=== PATIENT | male | born 1975 | race Caucasian/White ===

== ENCOUNTER 2021-10-22 21:30 | Inpatient (IN) | payer OTHER ==
[~2021-10-22] VITALS: Ht 193 cm; Wt 113.4 kg
--- NOTE | 2021-10-22 22:00 | NUR ---
BIBS C/O RLQ ABD PAIN X 2 WEEKS. PT AWAKE AND ALERT X4 AMBULATORY WITH STEADY GAIT. CHANGED INTPO GOWN AND PLACED ON MONITOR. BREATHING EVEN AND UNLABORED AND ALL V/S WNL.
--- NOTE | 2021-10-22 22:01 | NUR ---
urine collected and sent to lab
[2021-10-22 22:21] LABS: BASOPHILS # (AUTO) 0.1 K/uL (0.0-0.2); BASOPHILS % (AUTO) 0.5 % (0.0-2.0); EOSINOPHILS % (AUTO) 0.8 % (0.0-6.0); HEMATOCRIT 40 % (39-51); HEMOGLOBIN 14.2 g/dL (13.5-17.5); LYMPHOCYTES # (AUTO) 1.7 K/uL (0.8-4.8); LYMPHOCYTES % (AUTO) 15.2 % (20.0-44.0); MEAN CORPUSCULAR HGB CONC 35 g/dl (31.0-36.0); MEAN CORPUSCULAR VOLUME 82 fL (80-96); MONOCYTES % (AUTO) 8.9 % (2.0-12.0); NEUTROPHILS # (AUTO) 8.3 K/uL (1.8-8.9); NEUTROPHILS % (AUTO) 74.6 % (43.0-81.0); PLATELET COUNT (AUTO) 192 K/uL (150-450); RED BLOOD CELL COUNT(AUTO) 4.87 MIL/uL (4.5-6.0); WHITE BLOOD COUNT (AUTO) 11.2 K/uL (4.3-11.0)
[2021-10-22] MEDS ORDERED: KETOROLAC TROMETHAMINE INJ 30 MG/ML VIAL IV ONE (22:30)
[2021-10-22 22:33] LABS: BILIRUBIN,URINE NEGATIVE (NEGATIVE); COLOR,URINE YELLOW (YELLOW); LEUKOCYTE ESTERASE ,URINE NEGATIVE (NEGATIVE); NITRITE, URINE NEGATIVE (NEGATIVE); PROTEIN,URINE TRACE mg/dl (NEGATIVE); UGLUCOSE NEGATIVE (NEGATIVE)
--- NOTE | 2021-10-22 22:40 | NUR ---
PT TAKEN FOR CT SCAN
[2021-10-22] MEDS ORDERED: KETOROLAC TROMETHAMINE INJ 30 MG/ML VIAL ONE (22:46)
[2021-10-22 22:49] LABS: BACTERIA,URINE Rare /HPF (None Seen); SQUAMOUS EPITHELIAL CELL,UR None Seen /HPF (None Seen); WBC,URINE 0-2 /HPF (0-3)
[2021-10-22 22:49] LABS: CALCIUM, SERUM 8.2 mg/dL (8.5-10.1); CREATININE 1.1 mg/dL (0.6-1.3); POTASSIUM 3.4 mmol/L (3.5-5.1)
[2021-10-22] MEDS ORDERED: KETOROLAC TROMETHAMINE INJ 60 MG/2 ML VIAL IM ONE (23:00)
[2021-10-22 23:04] LABS: ALBUMIN 3.3 g/dL (3.4-5.0); BILIRUBIN,DIRECT 0.1 mg/dL (0.0-0.2); BILIRUBIN,TOTAL 0.4 mg/dL (0.2-1.0); TOTAL PROTEIN, SERUM 6.9 g/dL (6.4-8.2)
[2021-10-22] MEDS ORDERED: METRONIDAZOLE 500MG/ NS 100ML 100 ML IV ONE (23:30)
[2021-10-22] MEDS ORDERED: IV NS 0.9% 1,000 ML BAG IV ONE (23:30)
[2021-10-22] MEDS ORDERED: CEFTRIAXONE 1GM BAG (ER ONLY) 50 ML IV ONE ×2 (23:30→23:39)
--- NOTE | 2021-10-22 23:36 | NUR ---
DR HYMAN ON THE PHONE WITH DR COX, GEN SURG
--- NOTE | 2021-10-22 23:37 | NUR ---
COVID ANTIGEN SWAB COLLECTED AND SENT TO LAB
[2021-10-23] MEDS ORDERED: MORPHINE SULFATE INJ 2 MG/ML DISP.SYRIN IV ONE
--- NOTE | 2021-10-23 | NUR ---
MRSA SWAB COLLECTED AND SENT TO LAB. PATIENT'S BELONGINGS LIST DONE.
--- NOTE | 2021-10-23 00:02 | NUR ---
ROOM 304-2
[2021-10-23] MEDS ORDERED: METRONIDAZOLE 500MG/ NS 100ML 100 ML IV ONE ×2 (00:11→06:36)
[2021-10-23] MEDS ORDERED: MORPHINE SULFATE INJ 4 MG/ML DISP.SYRIN ONE (00:11)
[2021-10-23] MEDS ORDERED: MORPHINE SULFATE INJ 2 MG/ML DISP.SYRIN IV PRN (00:30)
[2021-10-23] MEDS ORDERED: ONDANSETRON HCL/PF 4 MG/2 ML VIAL IVP PRN (00:30)
[2021-10-23] MEDS ORDERED: ACETAMINOPHEN 325 MG TABLET PO PRN (00:30)
--- NOTE | 2021-10-23 00:30 | NUR ---
rewport given to lola
--- NOTE | 2021-10-23 00:50 | NUR ---
MS ELEVATING GRADER OPERATOR NOTES PATIENT ARRIVED TO UNIT 0050 ACCOMPANIED BY ER STAFF; PATIENT AMBULATORY; PATIENT ABLE TO MAKE NEEDS KNOWN; A/OX4, BREATHING EVEN AND UNLABORED; NO SOB NOTED; TOLERATING ROOM AIR WELL; PATIENT REPORTING MILD DISCOMFORT RLQ ABDOMINAL PAIN BUT VERBALIZED HE DOES NOT WANT ANY PAIN MEDS AT THIS TIME BECAUSE HE JUST RECEIVED PAIN MEDS IN ER; PATIENT MEDICAL HISTORY OBTAINED; PATIENT BELONGINGS CHECKED WITH GAME BREEDING FARM MANAGER, VSS; PATIENT NPO D/T POSSIBLE PROCEDURE; NO MD ORDERS FOR PROCEDURE AT THIS TIME; PATIENT HAS R FA #20 IV SITE, RECEIVING IVABX, TOLERATING IVF WELL; PATIENT ORIENTED TO STAFF AND UNIT, SAFETY PRECAUTIONS IMPLEMENTED; BED LOCKED IN LOW POSITION; SIDE RAILSX2, CALL LIGHT WITHIN REACH; WILL CONT TO MONITOR AND CONT PLAN OF CARE
--- NOTE | 2021-10-23 00:54 | NUR ---
TRANSFERRED TO THIRD FLOOR IN STABLE CONDITION
[2021-10-23] MEDS ORDERED: CEFEPIME 2 GM in IV D5W 100 ML IV ONE (01:30)
[2021-10-23] MEDS: IV NS 0.9% 1,000 ML IV SCH (01:32)
[2021-10-23] MEDS ORDERED: CEFEPIME 1 GM VIAL ONE (01:41)
--- NOTE | 2021-10-23 04:45 | NUR ---
RN NOTES RECEIVED CALL FROM NURSING RESEARCH ASSOCIATE POLICY, HERO HOOPER; PER NURSING SUP, PATIENT GOING FOR LAPAROSCOPIC APPENDECTOMY, POSSIBLE OPEN KURT; CHECK LIST DONE, CONSENTS SIGNED, WILL TRANSPORT PATIENT TO OR
[2021-10-23] MEDS ORDERED: FENTANYL PF 100MCG/2ML AMPUL ONE ×3 (05:04→07:31)
[2021-10-23] MEDS ORDERED: ROCURONIUM BROMIDE 50 MG/5 ML ONE (05:04)
[2021-10-23] MEDS ORDERED: ANESTHESIA TRAY IN PYXIS 1 EA TRAY MC ONE (05:20)
[2021-10-23] MEDS ORDERED: BUPIVACAINE MPF 0.5% W/EPI INJ 30 ML VIAL ONE (05:20)
--- NOTE | 2021-10-23 05:28 | NUR ---
MS RN NOTES PATIENT TRANSFERRED TO OR; WILL INFORM DAY SHIFT REGARDING PATIENT; CHARGE NURSE AWARE, NURSING ROULETTE DEALER AWARE
--- NOTE | 2021-10-23 06:56 | NUR ---
MS RN NOTES PATIENT CURRENTLY UNDERGOING PROCEDURE AT THIS TIME; NOT ON UNIT, WILL INFORM DAY SHIFT
--- NOTE | 2021-10-23 07:37 | NUR ---
MS RN OPENING NOTE PT IS NOT IN THE UNIT. PT CURRENTLY IN SURGERY AT THIS TIME.
[2021-10-23] MEDS ORDERED: LABETALOL HCL IV 100MG VIAL ONE (07:57)
--- NOTE | 2021-10-23 08:20 | NUR ---
RN NOTE PT BACK FROM SURGERY, S/P LAPAROSCOPIC APPENDECTOMY. DRESSING IN INTACT WITH NO ACTIVE BLEEDING NOTED. ELENA IN PLACE AND PATENT ON THE LEFT SIDE OF THE ABDOMEN. DENIES PAIN OR DISCOMFORT AT THIS TIME. PT CURRENTLY ON CLEAR LIQUID DIET. WILL CONTINUE TO MONITOR PT. Addendum: 10/23/21 at 2006 by MARCUS VALDOVINOS RN ADDENDUM PT IS ON S/P LAPAROSCOPIC APPENDECTOMY CONVERTED TO OPEN PLUS COLECTOMY PARTIAL.
[2021-10-23] MEDS ORDERED: MORPHINE SULFATE INJ 4 MG/ML DISP.SYRIN IV PRN (08:30)
[2021-10-23] MEDS ORDERED: DOCUSATE SODIUM 100 MG CAPSULE PO PRN (08:30)
[2021-10-23] MEDS ORDERED: CEFEPIME 2 GM in IV D5W 100 ML IV SCH (09:00)
[2021-10-23] MEDS ORDERED: ESCI10TA PO (09:01)
[2021-10-23] MEDS: METRONIDAZOLE 500MG/ NS 100ML 500 MG in PREMIX 1 EA IV SCH ×2 (09:35→18:36)
[2021-10-23] MEDS: POTASSIUM CL. PREMIX PERIPHER. 50 ML IV SCH ×2 (10:42→12:00)
[2021-10-23] MEDS ORDERED: METRONIDAZOLE 500MG/ NS 100ML 500 MG in PREMIX 1 EA IV SCH (12:00)
[2021-10-23] MEDS: ANCEF 1 GM/50 ML D5W IV SCH ×4 (13:38→21:36)
[2021-10-23] MEDS: MORPHINE SULFATE INJ 2 MG/ML DISP.SYRIN IV PRN (13:38)
[2021-10-23 16:00] VITALS: BP 124/90
--- NOTE | 2021-10-23 16:42 | NUR ---
RT Instructed patient on how to use incentive spirometer.
--- NOTE | 2021-10-23 19:15 | NUR ---
MS RN OPENING NOTES: RECEIVED PATIENT IN BED, ASLEEP, EASILY AROUSABLE. NO S/S OF DISTRESS NOTED. NO COMPLAIN OF PAIN. CALL LIGHT WITHIN REACH. BED IN LOWEST AND LOCKED POSITION. PER REPORT, PT SEEN THE PATIENT TODAY. REMINDED TO USE THE IS AND PATIENT DID. A/O X4. URINAL AT THE BEDSIDE. WITH ELENA DRAIN INTACT WITH SEROSANGUINOUS OUTPUT.
--- NOTE | 2021-10-23 19:33 | NUR ---
MS RN CLOSING NOTE PT IN BED ASLEEP, EASILY AROUSE. A/O X4, ABLE TO MAKE NEEDS KNOWN. ON RA, TOLERATING WELL. BREATHING EVEN AND UNLABORED. NOT IN ANY SIGN OF RESPIRATORY DISTRESS. IV ACCESS ON RFA G #20 INTACT AND PATENT WITH NS INFUSING AT 75ML/HR. ON S/P LAPAROSCOPIC APPENDECTOMY CONVERTED TO OPEN PLUS COLECTOMY PARTIAL, DRESSING IN PLACE WITH NO ACTIVE BLEEDING NOTED. ELENA DRAIN IN PLACE WITH 200ML OF OUTPUT DURING SHIFT. ALL NEEDS ATTENDED. SAFETY MEASURES IN PLACE: BED IN LOWEST AND LOCKED POSITION, SIDE RAILS UP X2, CALL LIGHT WITHIN REACH. ENDORSED TO RASCHEL KNITTING MACHINE OPERATOR NURSE FOR SILVIO.
[2021-10-23 20:00] VITALS: BP 134/55
[2021-10-23] MEDS ORDERED: ENOXAPARIN SODIUM 40 MG/0.4 ML DISP.SYRIN SQ SCH (22:00)
[2021-10-24] MEDS: METRONIDAZOLE 500MG/ NS 100ML 500 MG in PREMIX 1 EA IV SCH ×3 (01:29→18:44)
[2021-10-24] MEDS: ANCEF 1 GM/50 ML D5W IV SCH ×6 (05:15→21:00)
[2021-10-24] MEDS: MORPHINE SULFATE INJ 2 MG/ML DISP.SYRIN IV PRN ×2 (05:21→17:57)
[2021-10-24 05:55] LABS: HEMATOCRIT 38 % (39-51); HEMOGLOBIN 13.4 g/dL (13.5-17.5); LYMPHOCYTES % (AUTO) 6.7 % (20.0-44.0); MEAN CORPUSCULAR HGB CONC 35 g/dl (31.0-36.0); MEAN CORPUSCULAR VOLUME 83 fL (80-96); MONOCYTES # (AUTO) 1.4 K/uL (0.1-1.30); MONOCYTES % (AUTO) 8.8 % (2.0-12.0); NEUTROPHILS % (AUTO) 84.5 % (43.0-81.0); PLATELET COUNT (AUTO) 210 K/uL (150-450); RED BLOOD CELL COUNT(AUTO) 4.64 MIL/uL (4.5-6.0); WHITE BLOOD COUNT (AUTO) 15.4 K/uL (4.3-11.0)
[2021-10-24 06:08] LABS: BILIRUBIN,TOTAL 0.6 mg/dL (0.2-1.0); CREATININE 1.1 mg/dL (0.6-1.3); MAGNESIUM 1.9 mg/dL (1.8-2.4); PHOSPHORUS 2.7 mg/dL (2.5-4.9); POTASSIUM 3.5 mmol/L (3.5-5.1); TOTAL PROTEIN, SERUM 6.8 g/dL (6.4-8.2)
[2021-10-24 06:31] LABS: CALCIUM, SERUM 8.5 mg/dL (8.5-10.1)
--- NOTE | 2021-10-24 07:26 | NUR ---
MS RN OPENING NOTE RECEIVED PT IN ASLEEP IN BED, EASILY AROUSE. A/O X4, ABLE TO MAKE NEEDS KNOWN. ON RA, TOLERATING WELL. BREATHING EVEN AND UNLABORED. NOT IN ANY SIGN OF RESPIRATORY DISTRESS. IV ACCESS ON RFA G #20 INTACT AND PATENT WITH NS INFUSING AT 75ML/HR. ON S/P LAPAROSCOPIC APPENDECTOMY CONVERTED TO OPEN PLUS COLECTOMY PARTIAL, DRESSING IN PLACE WITH NO ACTIVE BLEEDING NOTED. ELENA DRAIN IN PLACE. SAFETY MEASURES IN PLACE: BED IN LOWEST AND LOCKED POSITION, SIDE RAILS UP X2, CALL LIGHT WITHIN REACH. WILL CONTINUE TO MONITOR PT.
[2021-10-24 08:00] VITALS: BP 147/68
[2021-10-24] MEDS: ENOXAPARIN SODIUM 40 MG/0.4 ML DISP.SYRIN SQ SCH (08:26)
[2021-10-24] MEDS: IV NS 0.9% 1,000 ML IV SCH (11:10)
[2021-10-24 16:33] VITALS: BP 136/87
--- NOTE | 2021-10-24 19:15 | NUR ---
MS RN NOTES RECEIVED ON BED A/O X4,VISITOR AT BEDSIDE,BREATHING REGULAR,NOT IN ANY FORM OF DISTRESS,S/P LAP APPY,CONVERTED TO OPEN AND PARTIAL COLECTOMY,SURGICAL ABDOMINAL INCISION X3 WITH DRESSING INTACT AND DRY,JOHNATHON VILLATORO IN PLACE DRAINING SANGUINOUS OUTPUT.,PAIN TOLERABLE AT THE MOMENT.ENCOURAGE TO DO IS WHILE AWAKE.CALL LIGHT IN REACH,NEEDS ANTICIPATED.
--- NOTE | 2021-10-24 19:30 | NUR ---
MS RN NOTES AMBULATE WITH WALKER,ACCOMPANIED BY .
--- NOTE | 2021-10-24 19:30 | NUR ---
MS RN CLOSING NOTE PT IN BED ASLEEP, EASILY AROUSE. A/O X4, ABLE TO MAKE NEEDS KNOWN. ON RA, TOLERATING WELL. BREATHING EVEN AND UNLABORED. NOT IN ANY SIGN OF RESPIRATORY DISTRESS. IV ACCESS ON RFA G #20 INTACT AND PATENT WITH NS INFUSING AT 75ML/HR. ON S/P LAPAROSCOPIC APPENDECTOMY CONVERTED TO OPEN PLUS COLECTOMY PARTIAL, DRESSING IN PLACE WITH NO ACTIVE BLEEDING NOTED. ELENA DRAIN IN PLACE WITH 110 ML OF OUTPUT DURING SHIFT. ALL NEEDS ATTENDED. SAFETY MEASURES IN PLACE: BED IN LOWEST AND LOCKED POSITION, SIDE RAILS UP X2, CALL LIGHT WITHIN REACH. ENDORSED TO CHAIR INSPECTOR NURSE FOR SILVIO.
[2021-10-24 20:00] VITALS: BP 137/97
[2021-10-25] MEDS: METRONIDAZOLE 500MG/ NS 100ML 500 MG in PREMIX 1 EA IV SCH ×3 (01:55→17:58)
[2021-10-25] MEDS: ANCEF 1 GM/50 ML D5W IV SCH ×6 (04:57→21:37)
[2021-10-25 06:06] LABS: BASOPHILS % (AUTO) 0.2 % (0.0-2.0); EOSINOPHILS % (AUTO) 0.2 % (0.0-6.0); HEMATOCRIT 42 % (39-51); HEMOGLOBIN 14.6 g/dL (13.5-17.5); LYMPHOCYTES # (AUTO) 1.6 K/uL (0.8-4.8); LYMPHOCYTES % (AUTO) 11.1 % (20.0-44.0); MEAN CORPUSCULAR HGB CONC 35 g/dl (31.0-36.0); MEAN CORPUSCULAR VOLUME 83 fL (80-96); MONOCYTES # (AUTO) 1.3 K/uL (0.1-1.30); NEUTROPHILS # (AUTO) 11.3 K/uL (1.8-8.9); NEUTROPHILS % (AUTO) 79.5 % (43.0-81.0); PLATELET COUNT (AUTO) 251 K/uL (150-450); RED BLOOD CELL COUNT(AUTO) 5.06 MIL/uL (4.5-6.0); WHITE BLOOD COUNT (AUTO) 14.2 K/uL (4.3-11.0)
--- NOTE | 2021-10-25 06:07 | NUR ---
MS RN NOTES SLEPT WELL AT NIGHT.OFFERED PAIN MEDICINE BUT REFUSE.PAIN TOLERABLE THRU OUT SHIFT.VOIDED PER URINAL,ELENA DRAINS SANGUINOUS OUTPUT.INCENTIVE SPIROMETRY USED WHILE AWAKE.IN NO ACUTE DISTRESS.
[2021-10-25 06:20] LABS: CALCIUM, SERUM 8.6 mg/dL (8.5-10.1); CREATININE 1.1 mg/dL (0.6-1.3); POTASSIUM 3.5 mmol/L (3.5-5.1)
[2021-10-25 08:00] VITALS: BP 145/93
[2021-10-25] MEDS: ENOXAPARIN SODIUM 40 MG/0.4 ML DISP.SYRIN SQ SCH (08:44)
[2021-10-25] MEDS: MORPHINE SULFATE INJ 2 MG/ML DISP.SYRIN IV PRN (14:45)
--- NOTE | 2021-10-25 18:36 | NUR ---
MS RN CLOSING NOTE PT IN BED AWAKE WATCHING TV. A/O X4, ABLE TO MAKE NEEDS KNOWN. ON RA, TOLERATING WELL. BREATHING EVEN AND UNLABORED. NOT IN ANY SIGN OF RESPIRATORY DISTRESS. IV ACCESS ON RFA G #20 SALINE LOCK, INTACT AND PATENT. ON S/P LAPAROSCOPIC APPENDECTOMY CONVERTED TO OPEN PLUS COLECTOMY PARTIAL, SURGICAL INCISION CLEANED AND DRESSING CHANGED. NO ACTIVE BLEEDING NOTED. ELENA DRAIN IN PLACE WITH 180 ML OF OUTPUT DURING SHIFT. ALL NEEDS ATTENDED. SAFETY MEASURES IN PLACE: BED IN LOWEST AND LOCKED POSITION, SIDE RAILS UP X2, CALL LIGHT WITHIN REACH. WILL ENDORSE TO PODIATRIC FOOT AND ANKLE SPECIALIST NURSE FOR SILVIO.
--- NOTE | 2021-10-25 20:01 | NUR ---
MS/TELE/RN PATIENT WAS IN BED AWAKE, ALERT, ORIENTED, COMFORTABLE, NO C/O PAIN, NO DISTRESS NOTED, CALL LIGHT IN REACH, WILL MONITOR.
[2021-10-25 20:40] VITALS: BP 145/95
[2021-10-26] MEDS: METRONIDAZOLE 500MG/ NS 100ML 500 MG in PREMIX 1 EA IV SCH ×3 (02:13→18:19)
[2021-10-26] MEDS: ANCEF 1 GM/50 ML D5W IV SCH ×6 (04:40→20:53)
[2021-10-26 05:47] LABS: BASOPHILS # (AUTO) 0.1 K/uL (0.0-0.2); BASOPHILS % (AUTO) 0.7 % (0.0-2.0); EOSINOPHILS % (AUTO) 1.3 % (0.0-6.0); HEMATOCRIT 41 % (39-51); HEMOGLOBIN 14.1 g/dL (13.5-17.5); LYMPHOCYTES # (AUTO) 1.7 K/uL (0.8-4.8); LYMPHOCYTES % (AUTO) 15.6 % (20.0-44.0); MEAN CORPUSCULAR HGB CONC 35 g/dl (31.0-36.0); MEAN CORPUSCULAR VOLUME 83 fL (80-96); MONOCYTES % (AUTO) 9.2 % (2.0-12.0); NEUTROPHILS # (AUTO) 8.2 K/uL (1.8-8.9); NEUTROPHILS % (AUTO) 73.2 % (43.0-81.0); PLATELET COUNT (AUTO) 263 K/uL (150-450); RED BLOOD CELL COUNT(AUTO) 4.95 MIL/uL (4.5-6.0); WHITE BLOOD COUNT (AUTO) 11.2 K/uL (4.3-11.0)
[2021-10-26 05:55] LABS: CALCIUM, SERUM 8.4 mg/dL (8.5-10.1); POTASSIUM 3.4 mmol/L (3.5-5.1)
--- NOTE | 2021-10-26 06:11 | NUR ---
MS/TELE/RN PATIENT APPEARS SLEEPING, APPEARS COMFORTABLE, NO SIGNS OF DISTRESS NOTED, CALL LIGHT IN REACH, ALL NEEDS ATTENDED AT THIS TIME, WILL CONTINUE TO MONITOR.
--- NOTE | 2021-10-26 07:40 | NUR ---
MS RN OPENING NOTES RECEIVED PATIENT SLEEPING IN HIS BED COMFORTABLY. A/O X 4. NO SIGNS OF DISTRESS, SOB AND DISCOMFORTED NOTED. R HAND 20G, PATENT & INTACT. SAFETY MEASURES INITIATED: CALL LIGHT IN REACH, BED ON LOWER POSITION. ALL NEEDS ATTENDED AT THIS TIME. WILL CONTINUE TO MONITOR FOR SILVIO.
[2021-10-26 08:00] VITALS: BP 137/100
[2021-10-26] MEDS ORDERED: POTASSIUM CHLORIDE 20 MEQ POWDER PACKET PO ONE (09:00)
[2021-10-26] MEDS: ENOXAPARIN SODIUM 40 MG/0.4 ML DISP.SYRIN SQ SCH (09:33)
[2021-10-26] MEDS: ESCITALOPRAM OXALATE (10 MG) 10 MG TABLET PO SCH (11:21)
[2021-10-26 16:00] VITALS: BP 124/86
--- NOTE | 2021-10-26 19:10 | NUR ---
MS/RN OPENING NOTE RECEIVED PATIENT RESTING IN BED. AWAKE, ALERT AND ORIENTED X 4. ABLE TO MAKE NEEDS KNOWN. DENIES PAIN AT THIS TIME. CONTINUES ON ROOM AIR WITH NO S/SX OF RESPIRATORY DISTRESS NOTED. IV ACCESS TO RIGHT FOREARM #20G INTACT, PATENT AND SALINE LOCKED. CONTINUES ON IV ABX. CONTINUES ON FULL LIQUID DIET WITH NO C/O NAUSEA/VOMITING NOTED. DRESSING TO SURGICAL SITE ON ABDOMEN C/D/I. ELENA DRAIN IN PLACE WITH MINIMAL DRAINAGE NOTED. CALL LIGHT WITHIN REACH. ASPIRATION, FALL AND SAFETY PRECAUTIONS MAINTAINED. ALL NEEDS ATTENDED TO AT THIS TIME.
--- NOTE | 2021-10-26 19:30 | NUR ---
MS RN CLOSING NOTES PATIENT IS RESTING COMFORTABLY IN BED. A/O X 4 AND ABLE TO COMMUNICATE HIS NEEDS. ROOM AIR, NO SIGNS OF DISTRESS, SOB AND DISCOMFORTED NOTED. R HAND 20G, PATENT & INTACT. ELENA BULB IN PLACE: TOTAL OUTPUT DRAINAGE OF 125 ML. SAFETY MEASURES INITIATED: CALL LIGHT IN REACH, BED ON LOWER POSITION. ALL NEEDS ATTENDED AT THIS TIME. WILL ENDORSE TO INCOMING SHIFT FOR SILVIO.
[2021-10-26 20:00] VITALS: BP 134/83
[2021-10-27] MEDS: METRONIDAZOLE 500MG/ NS 100ML 500 MG in PREMIX 1 EA IV SCH (01:01)
--- NOTE | 2021-10-27 03:17 | NUR ---
MS/RN NOTE PATIENT ENDORSES FEELING "HUNGRY". DENIES NAUSEA OR VOMITING ON FULL LIQUID DIET. PATIENT ENDORSES HAVING 2 BM'S YESTERDAY. GAVE SALTINE CRACKERS WITH PATIENT TOLERATING WELL. PER DR. COX MAY ADVANCE DIET AFTER BM. DIET ORDER CHANGED FROM FULL LIQUIDS TO REGULAR DIET.
[2021-10-27] MEDS: ANCEF 1 GM/50 ML D5W IV SCH ×6 (05:16→20:03)
--- NOTE | 2021-10-27 06:10 | NUR ---
MS/RN CLOSING NOTE PATIENT CURRENTLY RESTING IN BED. AWAKE, ALERT AND ORIENTED X 4. ABLE TO MAKE NEEDS KNOWN. DENIES PAIN AT THIS TIME. CONTINUES ON ROOM AIR WITH NO S/SX OF RESPIRATORY DISTRESS NOTED. IV ACCESS TO RIGHT FOREARM #20G INTACT, PATENT AND SALINE LOCKED. CONTINUES ON IV ABX. DENIES ANY NAUSEA/VOMITING THIS SHIFT. DRESSING TO SURGICAL SITE ON ABDOMEN C/D/I. ELENA DRAIN IN PLACE WITH MINIMAL DRAINAGE NOTED. TOTAL OUTPUT FROM ELENA DRAIN IS 50CC SEROSANGUINEOUS DRAINAGE. CALL LIGHT WITHIN REACH. ASPIRATION, FALL AND SAFETY PRECAUTIONS MAINTAINED. ALL NEEDS ATTENDED TO AT THIS TIME. WILL ENDORSE PLAN OF CARE TO ONCOMING SHIFT.
[2021-10-27 06:11] LABS: BASOPHILS % (AUTO) 0.4 % (0.0-2.0); EOSINOPHILS % (AUTO) 1.9 % (0.0-6.0); HEMATOCRIT 44 % (39-51); HEMOGLOBIN 15.1 g/dL (13.5-17.5); LYMPHOCYTES # (AUTO) 2.1 K/uL (0.8-4.8); LYMPHOCYTES % (AUTO) 17.8 % (20.0-44.0); MEAN CORPUSCULAR HGB CONC 34 g/dl (31.0-36.0); MEAN CORPUSCULAR VOLUME 84 fL (80-96); MONOCYTES # (AUTO) 0.9 K/uL (0.1-1.30); MONOCYTES % (AUTO) 7.4 % (2.0-12.0); NEUTROPHILS # (AUTO) 8.4 K/uL (1.8-8.9); NEUTROPHILS % (AUTO) 72.5 % (43.0-81.0); PLATELET COUNT (AUTO) 339 K/uL (150-450); RED BLOOD CELL COUNT(AUTO) 5.26 MIL/uL (4.5-6.0); WHITE BLOOD COUNT (AUTO) 11.6 K/uL (4.3-11.0)
[2021-10-27 06:17] LABS: CALCIUM, SERUM 8.7 mg/dL (8.5-10.1); POTASSIUM 3.3 mmol/L (3.5-5.1)
--- NOTE | 2021-10-27 07:00 | NUR ---
MS RN OPENING NOTES PATIENT LAYING IN BED, A/O X 4, ABLE TO MAKE NEEDS KNOWN. TOLERATING WELL ON ROOM AIR WITH NO S/S RESPIRATORY DISTRESS OR SOB. R FOREARM # 20 G SL CLEAN, INTACT, AND FLUSHING WELL. ABDOMINAL SURGICAL SITE DRESSING C/D/I. ELENA DRAIN IN PLACE. SAFETY MEASURES IN PLACE: BED IN LOWEST LOCKED POSITION, SIDE RAILS UP X 2, CALL LIGHT WITHIN REACH. WILL CONTINUE TO MONITOR.
[2021-10-27 08:00] VITALS: BP 130/71
[2021-10-27] MEDS ORDERED: POTASSIUM CHLORIDE 20 MEQ TAB.PRT.SR PO ONE (08:30)
[2021-10-27] MEDS: METRONIDAZOLE 500 MG TABLET PO SCH ×3 (08:55→20:01)
[2021-10-27] MEDS: ESCITALOPRAM OXALATE (10 MG) 10 MG TABLET PO SCH (08:55)
[2021-10-27] MEDS: ENOXAPARIN SODIUM 40 MG/0.4 ML DISP.SYRIN SQ SCH (08:56)
[2021-10-27 16:00] VITALS: BP 124/76
--- NOTE | 2021-10-27 19:00 | NUR ---
MS RN CLOSING NOTES PATIENT LAYING IN BED, A/O X 4, ABLE TO MAKE NEEDS KNOWN. TOLERATING WELL ON ROOM AIR WITH NO S/S RESPIRATORY DISTRESS OR SOB. R FOREARM # 20 G SL CLEAN, INTACT, AND FLUSHING WELL. ABDOMINAL SURGICAL SITE DRESSING C/D/I. ELENA DRAIN IN PLACE, 90 CC SEROSANGUINOUS DRAINAGE DURING SHIFT. SAFETY MEASURES IN PLACE: BED IN LOWEST LOCKED POSITION, SIDE RAILS UP X 2, CALL LIGHT WITHIN REACH. ALL NEEDS MET. WILL ENDORSE TO SUPPLIER QUALITY MANAGER FOR SILVIO.
--- NOTE | 2021-10-27 19:37 | NUR ---
MS RN OPENING NOTES RECEIVED PATIENT RESTING IN BED COMFORTABLY; PATIENT ABLE TO MAKE NEEDS KNOWN; A/OX4, BREATHING EVEN AND UNLABORED; NO SOB NOTED; TOLERATING ROOM AIR WELL; PATIENT HAS R FA #20 IV SITE, TOLERATING IVF WELL; ELENA DRAIN NOTED, PER AM SHIFT, DRAINAGE INCREASING, WILL CONT TO MONITOR; SAFETY PRECAUTIONS IMPLEMENTED; BED LOCKED IN LOW POSITION; SIDE RAILSX2, CALL LIGHT WITHIN REACH; WILL CONT TO MONITOR AND CONT PLAN OF CARE Addendum: 10/28/21 at 0403 by KATIE LAI RN UNABLE TO TAKE PICTURE OF LEFT LEG WOUND. CHARGE NURSE AWARE;
[2021-10-27 20:00] VITALS: BP 108/76
[2021-10-28] MEDS: ANCEF 1 GM/50 ML D5W IV SCH ×2 (04:40)
[2021-10-28 06:29] LABS: CALCIUM, SERUM 8.3 mg/dL (8.5-10.1); POTASSIUM 3.4 mmol/L (3.5-5.1)
--- NOTE | 2021-10-28 06:43 | NUR ---
MS RN CLOSING NOTES PATIENT RESTING IN BED COMFORTABLY; PATIENT ABLE TO MAKE NEEDS KNOWN; A/OX4, BREATHING EVEN AND UNLABORED; NO SOB NOTED; TOLERATING ROOM AIR WELL; PATIENT HAS R FA #20 IV SITE, TOLERATING IVF WELL; ELENA DRAIN NOTED WITH 25CC OUTPUT; ALL NEEDS RENDERED; SAFETY PRECAUTIONS IMPLEMENTED; BED LOCKED IN LOW POSITION; SIDE RAILSX2, CALL LIGHT WITHIN REACH; WILL ENDORSE SILVIO TO ONCOMING SHIFT
--- NOTE | 2021-10-28 07:30 | NUR ---
MS RN OPENING NOTES: RECEIVE PATIENT IN BED, ASLEEP EASILY AROUSED BY STIMULI. A/O X4 ABLE TO VERBALIZED NEEDS. NO SOB OR CARDIAC DISTRESS NOTED, ON ROOM AIR AND TOLERATING WELL. NOTED WITH IV ACCESS ON RFA G#20 SALINE LOCKED. NOTED WITH ELENA DRAIN ON MID ABDOMEN WITH SEROUS DRAINAGE NOTED, ON NEGATIVE PRESSURE. KEPT RESTED AND COMFORTABLE. SAFETY PRECAUTIONS MAINTAINED: BED LOCKED AND IN LOWEST POSITION, SIDE RAILS UP X 2. WILL MONITOR ACCORDINGLY.
--- NOTE | 2021-10-28 07:40 | NUR ---
RN NOTES: SEEN AND EXAMINED BY DR COX, REMOVED ELENA DRAIN-PATIENT TOLERATED WELL AND COVERED WITH DRY DRESSING AND SECURED WITH TAPE.
[2021-10-28 08:00] VITALS: BP 122/71
[2021-10-28] MEDS: ENOXAPARIN SODIUM 40 MG/0.4 ML DISP.SYRIN SQ SCH (08:14)
[2021-10-28] MEDS: ESCITALOPRAM OXALATE (10 MG) 10 MG TABLET PO SCH (08:14)
[2021-10-28] MEDS: METRONIDAZOLE 500 MG TABLET PO SCH (08:14)
[2021-10-28] MEDS ORDERED: HYDR-3972 PO (09:00)
[2021-10-28] MEDS ORDERED: ONDA4TAB5 PO (09:00)
[2021-10-28] MEDS ORDERED: AMOX-430 PO (09:00)
[2021-10-28] MEDS ORDERED: LACT1TAB25 PO (09:00)
[2021-10-28] MEDS ORDERED: POTASSIUM CHLORIDE 20 MEQ TAB.PRT.SR PO SCH (10:00)
--- NOTE | 2021-10-28 12:40 | NUR ---
MS RN DC NOTES: RESIDENT DC TODAY, PER PATIENT HE WILL TAKE UBER GOING HOME. RESIDENT A/O X 4 AND ABLE TO VERBALIZED NEEDS NO SOB OR CARDIAC DISTRESS NOTED. DISCHARGE INSTRUCTION GIVEN TO PATIENT AND VERBALIZED UNDERSTANDING. INSTRUCTED TO FOLLOW UP TO DR COX FOR LUBA REMOVAL, FOLLOW UP IN WEEKS FOR PRIMARY PHYSICIAN AND PATIENT VERBALIZED UNDERSTANDING. IV ACCESS AND IDENTIFICATION BAND REMOVED.PATIENT REFUSED TO TAKE WALKER WITH HIM, CHARGE NURSE LENIN MADE AWARE.ALL BELONGINGS CARRIED WITH THE PATIENT AND SIGNED PAPERS. SECURED DC PACKET WITH PATIENT. NUCLEAR FUELS RESEARCH ENGINEER HELPED PATIENT GOING TO LOBBY. PATIENT REMAINED STABLE WHEN LEFT IN THE FACILITY.
== END 2021-10-28 12:45 | disposition home or self-care (01) | DRG 330 ==
LOC: ER 21:33 → MED 10-23 00:04
PROVIDERS: ADMIT Nurse Practitioner Acute Care; ATTEND Nurse Practitioner Acute Care
PROC: 0DTJ0ZZ Resection of Appendix, Open Approach (ICD-10-PCS; principal; 2021-10-23)
PROC: 0DBK0ZZ Excision of Ascending Colon, Open Approach (ICD-10-PCS; 2021-10-23)
PROC: 0DBB0ZZ Excision of Ileum, Open Approach (ICD-10-PCS; 2021-10-23)
DX: K35.32 Acute appendicitis with perforation, localized peritonitis, and gangrene, without abscess (principal); C18.1 Malignant neoplasm of appendix; Z20.822 Contact with and (suspected) exposure to COVID-19; E66.9 Obesity, unspecified; E87.6 Hypokalemia; F32.A Depression, unspecified; Z83.3 Family history of diabetes mellitus; Z68.30 Body mass index [BMI] 30.0-30.9, adult
CPT/HCPCS: 36415; 80048-TC; 80053-TC; 80076-TC; 81001; 83605-TC; 83690-TC; 83735-TC; 84100-TC; 85025-TC; 85730-TC; 86850-TC; 87040-TC; 87081-TC; 94799-TC; 97116-TC; 97530-TC; A4216; A6403; G0378; J0330; J0690; J0692; J0696; J1100; J1650; J1885; J2270; J2405; J2704; J3010; J3480; J3490; J7030; J7040; J7060

== ENCOUNTER 2023-03-13 15:46 | Emergency (ER) | payer SELFPAY ==
[~2023-03-13] VITALS: Ht 188 cm; Wt 112.0 kg
[~2023-03-13 15:46] MED LIST: AMOX-430 PO; ESCI10TA PO; HYDR-3972 PO; LACT1TAB25 PO; ONDA4TAB5 PO
[2023-03-13 17:53] LABS: BASOPHILS % (AUTO) 0.5 % (0.0-2.0); HEMATOCRIT 46 % (39-51); HEMOGLOBIN 15.9 g/dL (13.5-17.5); LYMPHOCYTES # (AUTO) 0.3 K/uL (0.8-4.8); LYMPHOCYTES % (AUTO) 4.7 % (20.0-44.0); MEAN CORPUSCULAR HEMOGLOBIN 29 PG (26.0-33.0); MEAN CORPUSCULAR HGB CONC 35 g/dl (31.0-36.0); MEAN CORPUSCULAR VOLUME 85 fL (80-96); MONOCYTES # (AUTO) 0.6 K/uL (0.1-1.30); MONOCYTES % (AUTO) 8.7 % (2.0-12.0); NEUTROPHILS # (AUTO) 6.4 K/uL (1.8-8.9); NEUTROPHILS % (AUTO) 86.1 % (43.0-81.0); PLATELET COUNT (AUTO) 165 K/uL (150-450); RED CELL DISTRIBUTION WIDTH 13.1 % (11.5-15.0); WHITE BLOOD COUNT (AUTO) 7.4 K/uL (4.3-11.0)
[2023-03-13 18:30] LABS: CALCIUM, SERUM 8.4 mg/dL (8.5-10.1); CARBON DIOXIDE 21 mmol/L (21-32); CREATININE 0.9 mg/dL (0.6-1.3); GLUCOSE 97 mg/dL (74-106); NT-PRO BNP 174 pg/mL (0-125); UREA NITROGEN, BLOOD 6 mg/dL (7-18)
[2023-03-13 19:00] LABS: CHLORIDE 104 mmol/L (98-107); SODIUM SERUM 139 mmol/L (136-145)
[2023-03-13] MEDS ORDERED: POTASSIUM CHLORIDE 20 MEQ TAB.PRT.SR PO ONE (19:54)
[2023-03-13] MEDS: POTASSIUM CHLORIDE 20 MEQ TAB.PRT.SR PO ONE (19:57)
[2023-03-13] MEDS: KETOROLAC TROMETHAMINE INJ 30 MG/ML VIAL IV ONE (21:42)
[2023-03-13 23:01] VITALS: BP 135/89; TEMP 98.1; O2SAT 98
== END 2023-03-13 23:02 | disposition home or self-care (01) ==
LOC: ER 15:55
DX: R07.9 Chest pain, unspecified (principal); Z60.2 Problems related to living alone
CPT/HCPCS: 99285; 96374; 71045; 93005; 85025; 80048; 36415; 84484 ×2; 83880; J1885

== ENCOUNTER 2024-04-14 17:34 | Emergency (ER) | payer MEDICAID, OTHER ==
[~2024-04-14] VITALS: Ht 193 cm; Wt 105.7 kg
[2024-04-14] MEDS: IV NS 0.9% 500 ML BAG IV ONE (17:58)
[2024-04-14] MEDS ORDERED: IOHEXOL-350 100 ML VIAL IV ONE (17:58)
[2024-04-14] MEDS ORDERED: IV NS 0.9% 250 ML IV ONE (17:59)
[2024-04-14] MEDS ORDERED: CT SWABBABLE VALVE TRANS SET 1 EA INFUS.SET MC ONE (17:59)
[2024-04-14 18:10] LABS: CALCIUM, SERUM 8.2 mg/dL (8.5-10.1); CREATININE 1.1 mg/dL (0.6-1.3); POTASSIUM 3.3 mmol/L (3.5-5.1)
[2024-04-14 18:15] LABS: BASOPHILS # (AUTO) 0.1 K/uL (0.0-0.2); BASOPHILS % (AUTO) 0.7 % (0.0-2.0); EOSINOPHILS # (AUTO) 0.3 K/uL (0.0-0.7); EOSINOPHILS % (AUTO) 2.8 % (0.0-6.0); HEMATOCRIT 31 % (39-51); HEMOGLOBIN 10.9 g/dL (13.5-17.5); LYMPHOCYTES # (AUTO) 1.3 K/uL (0.8-4.8); LYMPHOCYTES % (AUTO) 12.8 % (20.0-44.0); MEAN CORPUSCULAR HEMOGLOBIN 29 PG (26.0-33.0); MEAN CORPUSCULAR HGB CONC 35 g/dl (31.0-36.0); MEAN CORPUSCULAR VOLUME 83 fL (80-96); MONOCYTES # (AUTO) 0.9 K/uL (0.1-1.30); MONOCYTES % (AUTO) 9.5 % (2.0-12.0); NEUTROPHILS # (AUTO) 7.4 K/uL (1.8-8.9); NEUTROPHILS % (AUTO) 74.2 % (43.0-81.0); PLATELET COUNT (AUTO) 282 K/uL (150-450); RED BLOOD CELL COUNT(AUTO) 3.74 MIL/uL (4.5-6.0); RED CELL DISTRIBUTION WIDTH 13.7 % (11.5-15.0); WHITE BLOOD COUNT (AUTO) 9.9 K/uL (4.3-11.0)
[2024-04-14 19:00] VITALS: TEMP 97.9
[2024-04-14 19:44] VITALS: BP 122/65; O2SAT 97
== END 2024-04-14 20:49 | disposition home or self-care (01) ==
LOC: ER 17:47
DX: Z46.82 Encounter for fitting and adjustment of non-vascular catheter (principal); J90 Pleural effusion, not elsewhere classified; Z79.899 Other long term (current) drug therapy
CPT/HCPCS: 99285; 71260; 96360; 74177; 85025; 80048; 36415; J7050; J7040; Q9967